=== PATIENT | male | born 1965 | race Caucasian/White ===

== ENCOUNTER → 2019-05-08 11:35 | Outpatient (BNVA) | payer BC, SELFPAY | PROVIDERS: Family Provider Family Medicine; PCP Family Medicine; Visit Provider Family Medicine | DX: E78.2 Mixed hyperlipidemia (principal); E11.65 Type 2 diabetes mellitus with hyperglycemia; M10.9 Gout, unspecified | CPT/HCPCS: 80053; 80061; 83721; 84550 ==

== ENCOUNTER → 2021-08-14 10:00 | Outpatient (BNVA) | payer BC, SELFPAY | PROVIDERS: Family Provider Family Medicine; PCP Family Medicine; Visit Provider Family Medicine | DX: E11.9 Type 2 diabetes mellitus without complications (principal); E78.2 Mixed hyperlipidemia | CPT/HCPCS: 80053; 80061; 83036; 83721; 85025 ==

== ENCOUNTER → 2021-09-01 11:27 | Outpatient (BNVA) | payer BC, SELFPAY | PROVIDERS: Family Provider Family Medicine; PCP Family Medicine; Visit Provider Nurse Practitioner Family | DX: E78.1 Pure hyperglyceridemia (principal); E11.9 Type 2 diabetes mellitus without complications; E78.5 Hyperlipidemia, unspecified; M10.9 Gout, unspecified; N52.9 Male erectile dysfunction, unspecified; Z12.5 Encounter for screening for malignant neoplasm of prostate; R53.83 Other fatigue; K59.09 Other constipation | CPT/HCPCS: 80053; 84153; 84402; 84403 ==

== ENCOUNTER → 2021-09-03 16:28 | Outpatient (BNVA) | payer BC, SELFPAY | PROVIDERS: Family Provider Family Medicine; PCP Family Medicine; Visit Provider Family Medicine | DX: M10.9 Gout, unspecified (principal) | CPT/HCPCS: 84550; 85025 ==

== ENCOUNTER → 2021-09-07 11:55 | Outpatient (BNVA) | payer BC, SELFPAY | PROVIDERS: Family Provider Family Medicine; PCP Family Medicine; Visit Provider Family Medicine | DX: R05.9 Cough, unspecified (principal); R50.9 Fever, unspecified | CPT/HCPCS: 87635 ==

== ENCOUNTER 2021-11-13 05:59 | Day surgery (SDC) | payer BC, SELFPAY ==
[2021-11-11 08:19] VITALS: BMI 34.9
--- NOTE | 2021-11-13 06:14 | W.PM.OPSUD ---
Surgery/Procedure H&P Update DATE OF PROCEDURE: November 13, 2021 DATE H&P PERFORMED: 10/28/21 H&P UPDATE INFORMATION: I have reviewed H&P completed within last 30 days, I have examined patient prior to procedure and No changes to prior documentation PREOP DIAGNOSIS: Constipation PRIMARY INDICATION FOR PROCEDURE: The same PLANNED PROCEDURE: Operation Date: 11/13/21 07:30 Proposed Procedures p Colonoscopy 93196,K59.09,Z12.11(Not Applicable) - Colin Brandt MD
[2021-11-13 06:26] VITALS: BP 140/90; PULSE 78; RESP 18; TEMP 36.1; O2SAT 96
[2021-11-13] MEDS: sodium chloride 0.9% 1,000 ML 30 ML IV (06:33)
--- NOTE | 2021-11-13 06:48 | ANES.PREANE2 ---
Pre-Anesthetic Assessment Height/Weight: Height 1.91 m Weight 127.006 kg Temp Pulse Resp BP Pulse Ox O2 Del Method 97 F L 78 18 140/90 96 11/13/21 06:26 11/13/21 06:26 11/13/21 06:26 11/13/21 06:26 11/13/21 06:26 11/13/21 06:26 Preop Diagnosis: Constipation Operation Date: 11/13/21 07:30 Proposed Procedures p Colonoscopy 79984,K59.09,Z12.11(Not Applicable) - Colin Brandt MD Familial anesthetic complications: none Was Beta Srinivasan taken within 24 hours: N/A Was Clonidine taken within 24 hours: N/A Last intake: Intake Last Liquid Date 11/12/21 Last Liquid Time 21:00 Last Solid Date 11/11/21 Last Solid Time 18:30 Social No alcohol and No tobacco Exam alert and oriented x 3 Airway Submandibular: within normal limits Cervical ROM: within normal limits Mallampati: Class II Dentition: full History/ROS No significant history except as noted Pulmonary None reported CV/HEM None reported None reported Hepatic None reported GI None reported Metabolic Diabetes Mellitus, Hyperlipidemia and Morbid Obesity [facility] [place] Lower Back Pain Neuropsych None reported Anesthetic Plan ASA status: 3 Anesthesia: Anesthesia Evaluation and MAC Medications/Allergies Home Medications Medication Instructions Recorded Confirmed Last Taken Type empagliflozin 25 mg tablet 25 mg PO QAM #30 tabs 08/14/21 11/11/21 11/11/21 Rx (Jardiance) glipizide 10 mg tablet 10 mg PO BID #60 tabs 08/14/21 11/11/21 11/11/21 Rx atorvastatin 40 mg tablet (Lipitor) 40 mg PO DAILY #30 tabs 08/20/21 11/11/21 11/11/21 Rx colchicine 0.6 mg tablet 0.6 mg PO DAILY PRN GOUT 30 days 09/30/21 11/11/21 Unknown Rx #30 tabs Allergies Allergy/AdvReac Type Severity Reaction Status Date / Time metformin AdvReac DIARRHEA Verified 10/30/21 16:22 Current Medications Generic Name Dose Route Start Last Admin Trade Name Freq PRN Reason Stop Dose Admin Sodium Chloride 1,000 mls @ 30 mls/hr 11/13/21 06:15 11/13/21 06:33 Sodium Chloride 0.9% IV 11/14/21 06:14 30 mls/hr .Q24H RENETTA Administration PFSH Anesthesia Medical History (Updated 11/13/21 @ 07:50 by Colin Brandt MD) Diabetes Gout Hyperlipidemia Hypertriglyceridemia Surgical History History of vasectomy (~2006) Social History Smoking and tobacco status: never smoked Quit status (tobacco): has quit using tobacco Year quit tobacco: SNUFF 1994 Alcohol intake: never Marital status: Data Anesthesia Cardiac Studies: No Data to Display
[2021-11-13 07:53] VITALS: BP 128/92; PULSE 82; RESP 18; TEMP 36.2; O2SAT 93
[2021-11-13 08:09] VITALS: BP 136/82; PULSE 81; RESP 18; O2SAT 94
--- NOTE | 2021-11-13 08:46 | ANE.PACU2 ---
Inpatient post-anesthesia follow up: Airway intact: Yes Vital signs: Temperature 97.1 F Pulse Rate 81 Respiratory Rate 18 Blood Pressure 136/82 Pulse Oximetry 94 Oxygen Delivery Me thod Room Air Oxygen Flow Rate 3 Fraction of Inspir ed Oxygen Hydration adequate: Yes Nausea and vomiting: No Pain level: 1 Mental status: Baseline
== END 2021-11-13 08:23 | disposition home or self-care (01) ==
PROVIDERS: PCP Family Medicine; Visit Provider Surgery
PROC: 0DJD8ZZ Inspection of Lower Intestinal Tract, Via Natural or Artificial Opening Endoscopic (ICD-10-PCS; CPT 45378; principal; 2021-11-13 07:30)
DX: K59.09 Other constipation (principal); E11.9 Type 2 diabetes mellitus without complications; E78.5 Hyperlipidemia, unspecified; E78.1 Pure hyperglyceridemia; E66.01 Morbid (severe) obesity due to excess calories; Z68.35 Body mass index [BMI] 35.0-35.9, adult; Z79.84 Long term (current) use of oral hypoglycemic drugs
CPT/HCPCS: 45378; J2704; J7030

== ENCOUNTER → 2021-11-25 13:52 | Outpatient (BNVA) | payer BC, SELFPAY | PROVIDERS: PCP Family Medicine; Visit Provider Nurse Practitioner Family | DX: R39.9 Unspecified symptoms and signs involving the genitourinary system (principal); Z12.5 Encounter for screening for malignant neoplasm of prostate; E11.9 Type 2 diabetes mellitus without complications; N52.9 Male erectile dysfunction, unspecified; R35.0 Frequency of micturition | CPT/HCPCS: 80053; 80061; 81003; 83036; 83721; 84153; 85025 ==

== ENCOUNTER → 2022-05-20 08:47 | Outpatient (BNVA) | payer BC, SELFPAY | PROVIDERS: PCP Family Medicine; Visit Provider Nurse Practitioner Family | DX: M10.9 Gout, unspecified (principal); E11.9 Type 2 diabetes mellitus without complications; E78.5 Hyperlipidemia, unspecified; R39.11 Hesitancy of micturition | CPT/HCPCS: 80053; 80061; 81000; 82043; 83036; 83721; 84153; 84443; 84550; 85025 ==

== ENCOUNTER → 2023-01-24 16:01 | Outpatient (BNVA) | payer BC, SELFPAY | PROVIDERS: PCP Family Medicine; Visit Provider Nurse Practitioner Family | DX: E11.9 Type 2 diabetes mellitus without complications (principal); E78.5 Hyperlipidemia, unspecified; E78.1 Pure hyperglyceridemia; M10.9 Gout, unspecified; N52.9 Male erectile dysfunction, unspecified | CPT/HCPCS: 80053; 80061; 83036; 83721; 84550 ==

== ENCOUNTER → 2023-07-28 08:45 | Outpatient (BNVA) | payer BC, SELFPAY | PROVIDERS: PCP Family Medicine; Visit Provider Nurse Practitioner Family | DX: N40.0 Benign prostatic hyperplasia without lower urinary tract symptoms (principal); E78.1 Pure hyperglyceridemia; E11.65 Type 2 diabetes mellitus with hyperglycemia; E78.2 Mixed hyperlipidemia; R35.0 Frequency of micturition; M10.9 Gout, unspecified; Z12.5 Encounter for screening for malignant neoplasm of prostate; E11.9 Type 2 diabetes mellitus without complications; N52.9 Male erectile dysfunction, unspecified; R31.9 Hematuria, unspecified | CPT/HCPCS: 80053; 80061; 82043; 83036; 83721; 84550; 85025; G0103 ==

== ENCOUNTER 2023-08-12 10:24 | Outpatient (CLI) | payer BC, SELFPAY ==
--- NOTE | 2023-08-12 11:15 | US_ITS ---
WS: [id number] ULTRASOUND RENAL TECHNIQUE: Ultrasound examination of both kidneys. CLINICAL INFORMATION: Hematuria COMPARISON: None. FINDINGS: RIGHT: Right kidney is normal in size and appearance. Echogenicity: Normal. Cortical thickness: 1.3 cm; Normal. Hydronephrosis: None. Perinephric fluid: None. Right kidney measures: 12.2 cm x 5.7 cm x 5.9 cm. LEFT: Left kidney is normal in size and appearance. Echogenicity: Normal. Cortical thickness: 1.3 cm; Normal. Hydronephrosis: None. Perinephric fluid: None. Left kidney measures: 11.9 cm x 5.6 cm x 5.3 cm. Normal visualized aorta. Normal bladder US/US renal BI* [id number] IMPRESSION: 1. No hydronephrosis in either kidney. 2. Normal bladder. 3. No other suspicious findings.
== END 2023-08-12 10:25 | disposition home or self-care (01) ==
LOC: RAD 10:25
PROVIDERS: PCP Family Medicine; Visit Provider Nurse Practitioner Family
DX: R31.9 Hematuria, unspecified (principal)
CPT/HCPCS: 76770

== ENCOUNTER → 2024-01-03 15:16 | Outpatient (BNVA) | payer BC, SELFPAY | PROVIDERS: PCP Nurse Practitioner Family; Visit Provider Nurse Practitioner Family | DX: Z12.5 Encounter for screening for malignant neoplasm of prostate (principal); M10.9 Gout, unspecified; Z79.899 Other long term (current) drug therapy; E11.65 Type 2 diabetes mellitus with hyperglycemia; R31.9 Hematuria, unspecified; Z87.39 Personal history of other diseases of the musculoskeletal system and connective tissue | CPT/HCPCS: 80053; 80061; 82306; 83036; 83721; 84550; 85025; G0103 ==

== ENCOUNTER → 2024-03-16 13:48 | Outpatient (BNVA) | payer BC, SELFPAY | PROVIDERS: PCP Nurse Practitioner Family; Visit Provider Nurse Practitioner Family | DX: M10.9 Gout, unspecified (principal) | CPT/HCPCS: 73110 ==

== ENCOUNTER → 2024-03-28 15:49 | Outpatient (BNVA) | payer BC, SELFPAY | PROVIDERS: PCP Nurse Practitioner Family; Visit Provider Nurse Practitioner Family | DX: M10.9 Gout, unspecified (principal) | CPT/HCPCS: 80053; 84550; 85025; 85651; 86140 ==

== ENCOUNTER → 2024-04-04 14:34 | Outpatient (BNVA) | payer BC, SELFPAY | PROVIDERS: PCP Nurse Practitioner Family; Visit Provider Nurse Practitioner Family | DX: E11.65 Type 2 diabetes mellitus with hyperglycemia (principal); M10.9 Gout, unspecified; M79.643 Pain in unspecified hand | CPT/HCPCS: 80061; 82306; 83036; 83721; 84550; 85651; 86038; 86140; 86200; 86431 ==

== ENCOUNTER → 2024-04-11 08:05 | Outpatient (BNVA) | payer BC, SELFPAY | PROVIDERS: PCP Nurse Practitioner Family; Visit Provider Nurse Practitioner | DX: M77.21 Periarthritis, right wrist; M25.431 Effusion, right wrist; M79.641 Pain in right hand | CPT/HCPCS: 73130 ==

== ENCOUNTER → 2024-04-16 15:31 | Outpatient (BNVA) | payer BC, SELFPAY | PROVIDERS: PCP Nurse Practitioner Family; Visit Provider Nurse Practitioner | DX: M06.4 Inflammatory polyarthropathy (principal) | CPT/HCPCS: 80053; 84550; 85025; 85651; 86200; 86225; 86235; 86431 ==

== ENCOUNTER 2024-04-19 08:37 | Outpatient (CLI) | payer BC, SELFPAY ==
--- NOTE | 2024-04-19 09:30 | MRR_ITS ---
PROCEDURE INFORMATION: Exam: MR Right Upper Extremity Joint Without Contrast; Wrist Exam date and time: 04/19/2024 9:30 AM Age: 58 years old Clinical indication: Right; Swelling and pain x 1 month. No known injury. Decreased use of wrist and hand. Arthritis seen on XR; Additional info: Pain in right wrist TECHNIQUE: Imaging protocol: Magnetic resonance imaging of the right upper extremity without contrast. Exam focused on the wrist. COMPARISON: CR XR wrist RT min 3V* [id number] 03/16/2024 1:54 PM FINDINGS: Bones/joints: There is a small joint effusion within the distal radioulnar joint as well as within the carpal articulations. There is marrow edema with erosions involving the ulnar styloid process, the scaphoid, lunate, triquetral bone, trapezium, trapezoid and capitate. There is relative sparing of the pisiform and hamate. There also appears to be subtle erosion involving the proximal 2nd metacarpal. The metacarpals are otherwise normal. Scapholunate ligament: Unremarkable. No tear. Lunotriquetral ligament: Unremarkable. No tear. Triangular fibrocartilage complex: Suspect partial tear involving the insertion on the ulnar styloid process. Flexor compartment tendons: Unremarkable. No tear. Extensor compartment tendons: Unremarkable. No tear. Soft tissues: There is edema involving the dorsal subcutaneous tissues. Carpal tunnel is normal. The median nerve is normal. Neurovascular bundles are normal. No focal loculated fluid collection or masses appreciated. MR/MR wrist RT wo con* [id number] IMPRESSION: 1. Marrow edema with the erosions involving the ulnar styloid process, carpal bones and proximal 2nd metacarpal . Findings are most worrisome for an inflammatory arthritis. An infectious arthritis could certainly have this appearance. Recommend clinical correlation. 2. Suspect partial tearing involving the TFC at its ulnar insertion.
== END 2024-04-19 08:38 | disposition home or self-care (01) ==
LOC: RAD 08:38
PROVIDERS: PCP Nurse Practitioner Family; Visit Provider Nurse Practitioner
DX: M25.531 Pain in right wrist (principal); R93.6 Abnormal findings on diagnostic imaging of limbs
CPT/HCPCS: 73221

== ENCOUNTER 2024-04-23 06:00 | Outpatient (CLI) | payer BC, SELFPAY | END 2024-04-23 23:59 | disposition home or self-care (01) | LOC: SPT 05-16 12:59 | PROVIDERS: PCP Nurse Practitioner Family; Visit Provider Nurse Practitioner | DX: Z46.89 Encounter for fitting and adjustment of other specified devices (principal); M25.531 Pain in right wrist | CPT/HCPCS: L3908 ==

== ENCOUNTER 2024-06-07 09:45 | Outpatient (RCR) | payer BC, SELFPAY | END 2024-06-18 23:59 | disposition home or self-care (01) | LOC: SOT 09:45 | PROVIDERS: Visit Provider Orthopaedic Surgery | DX: M25.531 Pain in right wrist (principal) | CPT/HCPCS: 97022; 97110; 97165 ==

== ENCOUNTER 2024-06-19 16:22 | Outpatient (RCR) | payer BC, SELFPAY | END 2024-07-18 23:59 | disposition home or self-care (01) | LOC: SOT 16:22 | PROVIDERS: Visit Provider Orthopaedic Surgery | DX: M25.531 Pain in right wrist (principal) | CPT/HCPCS: 97022; 97110; G0283 ==

== ENCOUNTER → 2024-06-25 10:37 | Outpatient (BNVA) | payer BC, SELFPAY | PROVIDERS: PCP Nurse Practitioner Family; Referring Provider Nurse Practitioner Family; Visit Provider Internal Medicine Rheumatology | DX: M25.50 Pain in unspecified joint (principal); M06.00 Rheumatoid arthritis without rheumatoid factor, unspecified site | CPT/HCPCS: 36415; 80076; 82306; 82565; 84550; 85025; 85651; 86140; 86480; 86704; 86803; 87340 ==

== ENCOUNTER 2024-07-19 05:00 | Outpatient (RCR) | payer BC, SELFPAY | END 2024-08-18 23:59 | disposition home or self-care (01) | LOC: SOT 05:00 | PROVIDERS: PCP Nurse Practitioner Family; Visit Provider Orthopaedic Surgery | DX: M25.531 Pain in right wrist (principal) | CPT/HCPCS: 97022; 97110 ==

== ENCOUNTER → 2024-08-23 08:27 | Outpatient (BNVA) | payer BC, SELFPAY | PROVIDERS: PCP Nurse Practitioner Family; Visit Provider Nurse Practitioner Family | DX: E11.65 Type 2 diabetes mellitus with hyperglycemia (principal); Z79.899 Other long term (current) drug therapy; E78.2 Mixed hyperlipidemia | CPT/HCPCS: 80053; 80061; 82306; 83036; 83721; 85025 ==

== ENCOUNTER → 2025-02-07 10:37 | Outpatient (BNVA) | payer BC, SELFPAY | PROVIDERS: PCP Nurse Practitioner Family; Visit Provider Nurse Practitioner Family | DX: Z12.5 Encounter for screening for malignant neoplasm of prostate (principal); E11.65 Type 2 diabetes mellitus with hyperglycemia | CPT/HCPCS: 80053; 80061; 82043; 83036; 84443; 85025; G0103 ==

== ENCOUNTER → 2025-02-19 13:42 | Outpatient (BNVA) | payer BC, SELFPAY | PROVIDERS: PCP Nurse Practitioner Family; Visit Provider Nurse Practitioner Family | DX: M25.561 Pain in right knee (principal) | CPT/HCPCS: 73562; 80053; 84550; 85025; 85651; 86140 ==